=== PATIENT | female | born 1955 | race Caucasian/White ===

== ENCOUNTER → 2018-01-17 | Outpatient (CLI) | payer OTHER | LOC: CIMAGING 12:39 | PROVIDERS: ATTEND Nurse Practitioner Family | DX: R93.89 Abnormal findings on diagnostic imaging of other specified body structures (principal); N93.9 Abnormal uterine and vaginal bleeding, unspecified | CPT/HCPCS: 76830-PO ==

== ENCOUNTER 2018-06-13 10:41 | Observation (INO) | payer OTHER ==
[2018-06-13] MEDS ORDERED: ERTAPENEM 1 GM in NS 100 ML IV ONE (10:51)
[2018-06-13] MEDS ORDERED: LR 1,000 ML IV ONE (10:52)
--- NOTE | 2018-06-13 12:28 | PDHPUP ---
History & Physical Update H&P update statement: This history and physical update is based on an assessment of the patient which was completed after admission or registration (within 24 hours), but prior to the surgery/procedure. H&P update: H&P reviewed & patient examined, no change in patient's condition since H&P completed
[2018-06-13] MEDS ORDERED: MIDAZOLAM 2 MG/2 ML VIAL IVP ONE (12:41)
--- NOTE | 2018-06-13 12:41 | PDANEPAE ---
ANE History of Present Illness abdominal wound wash out, supra peritonea and small ANE Past Medical History - Cardiovascular History Hx Hypertension: Yes Hx Arrhythmias: No Hx Chest Pain: No Hx Coronary Artery / Peripheral Vascular Disease: No Hx CHF / Valvular Disease: No Hx Palpitations: No Cardiovascular History Comment: hTn - Pulmonary History Hx Oxygen in Use at Home: Yes O2 in Use at Home (L/minute): 4 Hx Sleep Apnea: Yes Pulmonary History Comment: COPD, EMPHYSEMA, sob - Neurologic History Hx Cerebrovascular Accident: No Hx Seizures: No Hx Dementia: No - Endocrine History Hx Diabetes: No - Renal History Hx Renal Disorders: No - Liver History Hx Hepatic Disorders: No - Neurological & Psychiatric Hx Hx Neurological and Psychiatric Disorders: Yes - Cancer History Hx Cancer: Yes Cancer History Comment: UTERINE - Congenital Disorder History Hx Congenital Disorders: No - GI History Hx Gastrointestinal Disorders: Yes Gastrointestinal History Comment: COLON POLYPS - Chronic Pain History Chronic Pain: No - Surgical History Prior Surgeries: hysterectomy ANE Review of Systems Review of Systems: - Exercise capacity METS (RN): 2 METS ANE Patient History - Allergies Allergies/Adverse Reactions: cephalexin [From Keflex] Allergy (Verified 06/13/18 07:54) nickel Allergy (Verified 06/13/18 07:54) Penicillins Allergy (Verified 06/13/18 07:54) - Home Medications Home Medications: Advair 250/50 (*) 06/13/18 [Last Taken 06/13/18] Atrovent Hfa (*) 17 mcg 06/13/18 [Last Taken 06/13/18 10:30] Cannabidiol (Cbd) Extract 06/13/18 [Last Taken 06/09/18] Digoxin 06/13/18 [Last Taken 06/12/18] Diltiazem 180 mcg 06/13/18 [Last Taken 06/12/18] Furosemide [Lasix 40 MG (*)] 06/13/18 [Last Taken Unknown] Proair Hfa 90 mcg 06/13/18 [Last Taken 06/12/18] Tylenol 500 mg 06/13/18 [Last Taken Unknown] - NPO status NPO Since - Liquids (Date): 06/13/18 NPO Since - Liquids (Time): 00:01 NPO Since - Solids (Date): 06/12/18 NPO Since - Solids (Time): 20:00 - Smoking Hx Smoking Status: Former smoker - Family Anes Hx Family Hx Anesthesia Complications: hard to wake up ANE Labs/Vital Signs - Vital Signs Blood Pressure: 132/86 Heart Rate: 89 Respiratory Rate: 16 O2 Sat (%): 96 Height: 167.64 cm Weight: 98.883 kg ANE Physical Exam - Airway Neck exam: decreased ROM, increased neck circumference, short neck Mallampati Score: Class 3 Mouth exam: normal dental/mouth exam - Pulmonary Pulmonary: no respiratory distress, no rales or rhonchi - Cardiovascular Cardiovascular: regular rate and rhythym, no murmur, rub, or gallop - ASA Status ASA Status: II ANE Anesthesia Plan Anesthesia Plan: GA w LMA Total IV Anesthesia: No
[2018-06-13] MEDS ORDERED: BUPIVACAINE 0.5% 30 ML SDV ONE (12:44)
[2018-06-13] MEDS ORDERED: ONDANSETRON 4 MG/2 ML VIAL ONE (12:52)
[2018-06-13] MEDS ORDERED: DEXAMETHASONE 4 MG/ML VIAL ONE (12:52)
[2018-06-13] MEDS ORDERED: fentaNYL 100 MCG/2 ML INJ ONE ×2 (12:52→13:57)
[2018-06-13] MEDS ORDERED: PROPOFOL 200 MG/20 ML VIAL ONE (12:52)
[2018-06-13] MEDS ORDERED: LIDOCAINE 2% 100 MG/5 ML SYR ONE (12:52)
[2018-06-13] MEDS ORDERED: MIDAZOLAM 2 MG/2 ML VIAL ONE (12:53)
[2018-06-13] MEDS ORDERED: ACETAMINOPHEN 325 MG TAB PO PRN (13:53)
[2018-06-13] MEDS ORDERED: ONDANSETRON 4 MG/2 ML VIAL IVP PRN (13:53)
--- NOTE | 2018-06-13 13:53 | POSTOPPROG ---
Post Op Note Date of Operation: 06/13/18 Surgeon: Yg Johnson Anesthesiologist: Arcelia Anesthesia: GET(General Endotracheal) Pre-op Diagnosis: Incisional wound Post-op Diagnosis: same Procedure: Wound marsupialization, washout, debridement c VAC Findings: wound tracked 7cm contralat, stitch abscess at base Inf/Abcess present in the surg proc area at time of surgery?: Yes Depth: Superfical (Skin SQ) EBL: Minimal Total fluids administered: 500cc washout Drains: Wound Vac
[2018-06-13] MEDS ORDERED: PROMETHAZINE HCL 25 MG/ML INJ IVP PRN (13:55)
[2018-06-13] MEDS ORDERED: DIAZEPAM 5 MG/ML 1 ML SYR IVP PRN (13:55)
[2018-06-13] MEDS ORDERED: NALOXONE HCL 0.4 MG/ML INJ IVP PRN (13:55)
[2018-06-13] MEDS ORDERED: oxyCODONE IR 5 MG TAB PO PRN (13:55)
[2018-06-13] MEDS ORDERED: MEPERIDINE 25 MG/0.5 ML AMP IVP PRN (13:55)
[2018-06-13] MEDS ORDERED: ACETAMINOPHEN 500 MG TAB PO PRN (13:55)
[2018-06-13] MEDS ORDERED: HYDROmorphONE/DILAUDID 2 MG/ML INJ IVP PRN (13:55)
[2018-06-13] MEDS ORDERED: LR 500 ML IV PRN (13:55)
--- NOTE | 2018-06-13 13:58 | POSTANESTH ---
Post Anesthetic Evaluation Cardiovascular Status: Normal, Stable Respiratory Status: Normal, Stable, Similar to Pre-op Cond. Level of Consciousness/Mental Status: Can Participate in Eval, Mildly Sleepy, Arousable Pain Control: Adequate, Prn Tx Ordered Nausea/Vomiting Control: Adequate, Prn Tx Ordered Complications Possibly Related to Anesthesia: None Noted
[2018-06-13] MEDS ORDERED: D5W 1/2 NS W/ 20 KCl/L 1,000 ML IV SCH (14:00)
[2018-06-13] MEDS: fentaNYL 100 MCG/2 ML INJ IVP PRN ×2 (14:02→14:32)
[2018-06-13] MEDS: IBUPROFEN 600 MG TAB PO SCH ×2 (15:03→21:08)
--- NOTE | 2018-06-13 17:25 | GOP ---
[f rep st] OPERATIVE REPORT DATE OF OPERATION: 06/13/2018 SURGEON: Yg Johnson MD SUPERVISOR STONE: None. ANESTHESIA: General endotracheal. ANESTHESIOLOGIST: Dr. Cinthya Paniagua. PREOPERATIVE DIAGNOSIS: Incisional abdominal wound. POSTOPERATIVE DIAGNOSIS: Incisional abdominal wound. PROCEDURE PERFORMED: Abdominal wound exploration, washout, debridement and wound VAC placement. FINDINGS: Wound cavity probed approximately 7 cm to the contralateral side. At that point in time, it appeared that there was a stitch abscess. All suture material was successfully sharply removed. The area was debrided, washed out and a VAC placed. SPECIMENS: None. ESTIMATED BLOOD LOSS: 10 mL. DESCRIPTION OF PROCEDURE: The patient was greeted in the preoperative suite. Once again, risks, anne marie efits and alternatives were discussed. Consent was signed. She was then brought back to the operati ve suite, placed on the OR table in supine position. After all anesthesia machines including SCDs we re on and functioning, [employer] Health [employer] time-out was performed. After successful induction of general anesthesia, the patient's abdomen was prepped and draped in typical sterile fashion. I co mmenced the procedure by first unroofing the area, which was approximately 7 cm. I carried this down to the skin and subcutaneous tissue, which was mostly scar tissue. Just deep to this, I found old s uture material in the right lateral portion of the wound. All this was removed sharply. I found no other significant abscess cavities. The area was then debrided using a curette. All granulation tis hemant was successfully removed. I irrigated the area with sterile saline. Hemostasis was achieved wit h electrocautery. The VAC was then brought into the area. A black sponge was fashioned for the area tracked up onto the anterior abdomen, appropriately padded and attached to suction at 125 mmHg, whic h was well tolerated by the patient. She was then extubated in the operative suite and taken to the PACU in satisfactory condition. DRAINS: Wound VAC. COUNTS: All counts were reported as correct x2. /[id number]/MODL
[2018-06-14] MEDS ORDERED: ALBUTEROL IH PRN (04:08)
[2018-06-14] MEDS: IPRATROPIUM BROMIDE IH PRN ×2 (04:17→08:59)
[2018-06-14] MEDS: IBUPROFEN 600 MG TAB PO SCH ×2 (06:26→13:27)
[2018-06-14] MEDS ORDERED: FLUTICASONE NASAL 120 SPRAYS/16 GM MDI EACHNARE PRN (06:47)
[2018-06-14] MEDS: HYDROmorphONE/DILAUDID 1 MG/ML INJ IVP PRN ×2 (07:18→07:40)
[2018-06-14] MEDS ORDERED: ENOXAPARIN 40 MG/0.4 ML SYR SC SCH (09:00)
[2018-06-14] MEDS ORDERED: FLUTICASONE/SALMETER 250/50MCG DISKUS IH SCH (09:00)
[2018-06-14] MEDS ORDERED: DILTIAZEM CD 180 MG CAP PO SCH (09:00)
[2018-06-14] MEDS ORDERED: oxyCODONE IR 5 MG TAB PO PRN (09:47)
[2018-06-14] MEDS ORDERED: DIGOXIN 250 MCG TAB PO SCH (10:00)
[2018-06-14 12:00] VITALS: BP 146/79
--- NOTE | 2018-06-14 14:11 | ASMTLACE ---
LACE Length of stay for Answers: Less than 1 day current admission Acuity / Level of Answers: No Care: Did the patient have an inpatient admission? Comorbidities - select Answers: Chronic pulmonary disease all that apply Other Notes: HTN # of Emergency department Answers: 0 visits in the last 6 months Score: 3 Date Signed: 06/14/2018 02:10 PM Electronically Signed By:Vesat Fitzpatrick
--- NOTE | 2018-06-14 14:12 | ASMTDCNOTE ---
Case Management Discharge Discharge Order Complete? Answers: Yes Patient to Obtain Answers: via Family Medications Transportation Arranged Answers: Family/Friends Transport will Pick (Date 06/14/2018 12:00 AM & Time) Faxed Final Orders Answers: Yes Agency/Facility Transfer Answers: Yes Report Printed & Faxed to Receiving Agency Family Notified Answers: Yes Notes: brother to clam picker Discharge Comments Notes: Spoke with pt in the room. Pt admitted for abdominal washout and wound vac placement. Pt is current with [facility]. Discharge orders faxed to genny Almanzar's Physical Therapy Aides Teacher at [facility]. Pt reports that she has RN and AGENCY DEVELOPMENT MANAGER support in the home through [facility]. No further CM needs noted at this time. Date Signed: 06/14/2018 02:11 PM Electronically Signed By:Vesta Fitzpatrick
--- NOTE | 2018-06-14 14:31 | ASDISCHSUM ---
Discharge Information Plan Status:Home with Home Health Medically Cleared to Leave:06/14/2018 Discharge Date:06/14/2018 02:10 PM CM D/C Disposition:Home, Routine, Self-Care ADT D/C Disposition:Home, Routine, Self-Care Projected Discharge Date:06/14/2018 02:10 PM Transportation at D/C:Family Discharge Delay Reason: Follow-Up Date:06/14/2018 02:10 PM Discharge Slot: Final Diagnosis:Abdominal Wound Placement Information Patient Contact Information Contact Name:VALARIE Relationship:Son Address: Work Phone: City: [facility] Phone: [place] Code: Email: Financial Information Financial Class:HMO and PPO Plans Primary Plan Desc:AMPARO BRITTON Primary Plan Number:[id number] Secondary Plan Desc: Secondary Plan Number: Assessment Information LACE LACE Length of stay for Answers: Less than 1 day current admission Acuity / Level of Answers: No Care: Did the patient have an inpatient admission? Comorbidities - select Answers: Chronic pulmonary disease all that apply Other Notes: HTN # of Emergency department Answers: 0 visits in the last 6 months Score: 3 Date Signed: 06/14/2018 02:10 PM Electronically Signed By:Vesta Fitzpatrick Case Management Discharge Plan Note Case Management Discharge Discharge Order Complete? Answers: Yes Patient to Obtain Answers: via Family Medications Transportation Arranged Answers: Family/Friends Transport will Pick (Date 06/14/2018 12:00 AM & Time) Faxed Final Orders Answers: Yes Agency/Facility Transfer Answers: Yes Report Printed & Faxed to Receiving Agency Family Notified Answers: Yes Notes: brother to rock picker Discharge Comments Notes: Spoke with pt in the room. Pt admitted for abdominal washout and wound vac placement. Pt is current with [facility]. Discharge orders faxed to Jenelle pt's Assembler Skylights at [facility]. Pt reports that she has RN and CARGO SERVICE AGENT support in the home through [facility]. No further CM needs noted at this time. Date Signed: 06/14/2018 02:11 PM Electronically Signed By:Vesta Fitzpatrick Intervention Information
== END 2018-06-14 14:10 | disposition home or self-care (01) ==
LOC: F3N 10:41 → F3E 14:49
PROVIDERS: ADMIT Surgery; ATTEND Surgery
PROC: 0JD80ZZ Extraction of Abdomen Subcutaneous Tissue and Fascia, Open Approach (ICD-10-PCS; principal; 2018-06-13 12:15)
PROC: 2W13X6Z Compression of Abdominal Wall using Pressure Dressing (ICD-10-PCS; principal; 2018-06-13 12:15)
DX: T81.41XA Infection following a procedure, superficial incisional surgical site, initial encounter (principal); J44.9 Chronic obstructive pulmonary disease, unspecified; E66.01 Morbid (severe) obesity due to excess calories; I10 Essential (primary) hypertension; Z86.010 Personal history of colon polyps
CPT/HCPCS: 11042; 97605; G0378; J1100; J1170; J1335; J1650; J2001; J2250; J2405; J2704; J3010

== ENCOUNTER 2018-09-09 10:17 | Inpatient (IN) | payer OTHER | END 2018-09-11 13:44 | disposition home or self-care (01) | LOC: F2N 10:17 → F3E 10:56 ==